=== PATIENT | female | born 1995 | race Two or more races ===

== ENCOUNTER 2024-03-03 18:10 | Emergency (ER) | payer SELFPAY ==
[2024-03-03] MEDS ORDERED: Sodium Chloride 0.9% 10 ML Syringe FLUSH PRN (18:31)
[2024-03-03 19:05] LABS: BASOPHILS ABSOLUTE AUTO 0.1 K/mm3 (0.0-0.2); BASOPHILS PERCENT AUTO 0.8 % (0.0-1.0); EOSINOPHILS ABSOLUTE AUTO 0.2 K/mm3 (0.0-0.4); HEMATOCRIT 39.3 % (37.0-47.0); HEMOGLOBIN 12.8 gm/dl (12.0-16.0); IMMATURE GRAN ABSOLUTE AUTO 0.03 K/mm3 (0.00-0.05); IMMATURE GRAN PERCENT AUTO 0.3 % (0.0-0.4); LYMPHOCYTES ABSOLUTE AUTO 2.9 K/mm3 (1.0-4.8); LYMPHOCYTES PERCENT AUTO 31.5 % (24.0-44.0); MEAN CORPUSCULAR HEMOGLOBIN 29.9 pg (28.0-32.0); MEAN CORPUSCULAR HGB CONC 32.6 g/dl (32.0-36.0); MEAN CORPUSCULAR VOLUME 91.8 fl (83.0-99.0); MEAN PLATELET VOLUME 10.7 fl (9.4-12.3); MONOCYTES ABSOLUTE AUTO 0.6 K/mm3 (0.0-0.8); NEUTROPHILS ABSOLUTE AUTO 5.3 K/mm3 (1.8-7.7); NEUTROPHILS PERCENT AUTO 58.4 % (41.0-71.0); PLATELET COUNT,PLT 233 K/mm3 (150-400); RED BLOOD CELL COUNT 4.28 M/mm3 (4.10-5.30); WHITE BLOOD CELL COUNT,WBC 9.11 K/mm3 (3.9-11.3)
[2024-03-03 19:27] LABS: LACTIC ACID 0.5 mmol/L (0.4-2.0)
[2024-03-03 19:33] LABS: ALBUMIN 3.5 g/dl (3.4-5.0); ANION GAP 11.1 (5-15); BILIRUBIN TOTAL 0.1 mg/dL (0.2-1.0); BUN/CREATININE RATIO 15.7 (14-18); C-REACTIVE PROTEIN 0.07 mg/dL (<0.30); CALCIUM 9.1 mg/dL (8.5-10.1); CREATININE 0.7 mg/dL (0.55-1.02); EST CRCL DRUG DOSING (CG) 94.63 mL/min; MAGNESIUM 2.1 mg/dL (1.8-2.4); POTASSIUM,K 4.1 mEq/L (3.5-5.1); PROTEIN TOTAL,TP 7.2 g/dl (6.4-8.2)
[2024-03-03] MEDS: Iopamidol 612 MG/ML 100 ML Bottle IVPUSH ONE (20:02)
[2024-03-03 20:32] LABS: APPEARANCE,URINE SLT CLOUDY (Clear); BILIRUBIN,URINE NEGATIVE (Negative); COLOR,URINE LIGHT YELLOW (Yellow); GLUCOSE,URINE NEGATIVE (Negative); KETONES,URINE NEGATIVE (Negative); LEUKOCYTE ESTERASE,URINE NEGATIVE (Negative); NITRITE,URINE NEGATIVE (Negative); OCCULT BLOOD,URINE 2+ (Negative); PROTEIN,URINE NEGATIVE (Negative); UROBILINOGEN,URINE 0.2 (0.2-1.0)
[2024-03-03 20:57] LABS: BACTERIA,URINE MODERATE /hpf (FEW); MUCUS,URINE FEW /hpf (FEW); SQUAMOUS EPITHELIAL CELLS,UR 0-5 /hpf (0-5); WBC,URINE 0-5 /hpf (0-5)
== END 2024-03-03 21:20 | disposition home or self-care (01) ==
LOC: JD.ED 18:10
DX: K59.00 Constipation, unspecified (principal)
CPT/HCPCS: 36415; 74177; 80053; 81001; 83605; 83690; 83735; 84702; 85025; 86140; 99284; Q9967